=== PATIENT | male | born 1995 | race Caucasian/White ===

== ENCOUNTER → 2024-10-07 | Emergency (ER) | payer SELFPAY ==
[~2024-10-07] VITALS: Ht 172.7 cm; Wt 74.8 kg
[~2024-10-07] MED LIST: PROZAC40 MG PO; QUETIAPINE FUMARATE 25 MG TAB ONE; SEROQUEL100 MG PO
[2024-10-07 21:02] LABS: BASOPHILS % 0.4 % (0.0-1.0); EOSINOPHILS # (AUTO) 0.1 (0.0-0.4); EOSINOPHILS % 1.3 % (0.0-6.0); HEMATOCRIT 44.9 % (38.2-49.6); HEMOGLOBIN 15.3 g/dL (14.0-18.0); LYMPHOCYTES # (AUTO) 2.5 (1.0-3.2); LYMPHOCYTES % 30.6 % (18.0-39.1); MEAN CORPUSCULAR HGB CONC 34.1 g/dL (31-35); MEAN CORPUSCULAR VOLUME 90.9 fL (81-99); MONOCYTES # (AUTO) 0.7 (0.2-0.8); MONOCYTES % 7.9 % (4.4-11.3); NEUTROPHILS # (AUTO) 4.9 (2.1-6.9); NEUTROPHILS % 59.4 % (38.7-80.0); PLATELET COUNT 318 x10e3/uL (140-360); RED BLOOD COUNT 4.94 x10e6/uL (4.3-5.7); RED CELL DISTRIBUTION WIDTH 12.6 % (11.7-14.4); WHITE BLOOD COUNT 8.24 x10e3/uL (4.8-10.8)
[2024-10-07 21:05] LABS: AMPHETAMINES SCREEN,URINE NEGATIVE (NEGATIVE); BENZODIAZEPINES SCREEN,URINE POSITIVE (NEGATIVE); CANNABINOIDS SCREEN,URINE NEGATIVE (NEGATIVE); COCAINE SCREEN,URINE NEGATIVE (NEGATIVE); METHADONE SCREEN, URINE NEGATIVE (NEGATIVE); OPIATES SCREEN,URINE NEGATIVE (NEGATIVE); PHENCYCLIDINE SCREEN,URINE NEGATIVE (NEGATIVE)
[2024-10-07 21:29] LABS: ALANINE AMINOTRANSFERASE 25 IU/L (0-55); ALBUMIN 4.4 g/dL (3.5-5.0); ALBUMIN/GLOBULIN RATIO 1.5 (0.8-2.0); ALKALINE PHOSPHATASE 60 IU/L (40-150); ANION GAP 16.8 mmol/L (8-16); BILIRUBIN,TOTAL 0.9 mg/dL (0.2-1.2); BLOOD UREA NITROGEN 13 mg/dL (7-26); BUN/CREATININE RATIO 12 (6-25); CALCIUM 9.2 mg/dL (8.4-10.2); CARBON DIOXIDE 20 mmol/L (22-29); CHLORIDE 107 mmol/L (98-107); CREATINE KINASE 95 IU/L (30-200); CREATININE, SERUM 1.05 mg/dL (0.72-1.25); EST GLOMERULAR FILTRATION RATE 97 ML/MIN (>=60); GLUCOSE 123 mg/dL (74-118); POTASSIUM 3.8 mmol/L (3.5-5.1); SODIUM 140 mmol/L (136-145); TOTAL PROTEIN 7.4 g/dL (6.5-8.1)
[2024-10-07 21:47] LABS: TROPONIN I < 0.05 ng/mL (0.0-0.40)
[2024-10-07 21:48] LABS: ACETAMINOPHEN < 3.0 ug/mL (10-30); ETHANOL < 10.0 mg/dL (0.0-10.0); SALICYLATE < 5.0 mg/dL (0-30)
[2024-10-08] MEDS: QUETIAPINE FUMARATE 100 MG TAB PO SCH (20:58)
[2024-10-12 04:30] VITALS: BP 103/64; PULSE 50; RESP 20; TEMP 97.5; O2SAT 99
[2024-10-12 08:19] VITALS: BP 113/83; PULSE 51; RESP 18; TEMP 97.5; O2SAT 99
[2024-10-12 12:00] VITALS: BP 108/65; PULSE 59; RESP 17; TEMP 98.2; O2SAT 98
[2024-10-12 16:00] VITALS: BP 122/77; PULSE 64; RESP 15; TEMP 98; O2SAT 98
[2024-10-14] MEDS: QUETIAPINE FUMARATE 100 MG TAB ONE ×2 (14:27)
[2024-10-14 18:48] VITALS: PULSE 60; RESP 17; TEMP 98.2; O2SAT 99
== END | disposition home or self-care (01) ==
LOC: ER 20:54
DX: R45.851 Suicidal ideations (principal); F41.9 Anxiety disorder, unspecified; F32.A Depression, unspecified; F90.9 Attention-deficit hyperactivity disorder, unspecified type; G47.00 Insomnia, unspecified; F17.210 Nicotine dependence, cigarettes, uncomplicated
CPT/HCPCS: 36415; 80053; 80307; 80320; 80329; 82550; 84484; 85025; 93005